=== PATIENT | male | born 1975 | race Hispanic/Latino ===

== ENCOUNTER 2023-05-15 18:54 | Emergency (ER) | payer BC ==
[~2023-05-15] VITALS: Ht 172.7 cm; Wt 101.2 kg
[2023-05-15] MEDS ORDERED: GABA300C PO (19:50)
[2023-05-15] MEDS ORDERED: AMOX1TAB16 PO (19:50)
[2023-05-15 20:10] VITALS: BP 140/72; PULSE 96; RESP 18
== END 2023-05-15 20:11 | disposition home or self-care (01) ==
LOC: EDH 18:54
DX: B02.9 Zoster without complications (principal); E11.9 Type 2 diabetes mellitus without complications; I10 Essential (primary) hypertension

== ENCOUNTER → 2024-05-04 | Emergency (ER) | payer BC ==
[~2024-05-04] VITALS: Ht 172.7 cm; Wt 113.4 kg
[~2024-05-04] MED LIST: AMOX1TAB16 PO; GABA300C PO
[2024-05-04 18:31] VITALS: BP 136/89; PULSE 100; RESP 16
== END ==
LOC: EDH 18:28
DX: B07.9 Viral wart, unspecified (principal); E11.9 Type 2 diabetes mellitus without complications; I10 Essential (primary) hypertension
CPT/HCPCS: 99281

== ENCOUNTER 2024-05-07 12:05 | Emergency (ER) | payer BC ==
[~2024-05-07] VITALS: Ht 172.7 cm; Wt 113.4 kg
[2024-05-07 13:07] LABS: BASOPHILS # (AUTO) 0.04 K/uL (0.00-0.20); BASOPHILS % (AUTO) 0.4 % (0.0-5.0); EOSINOPHILS # (AUTO) 0.13 K/uL (0.00-0.70); EOSINOPHILS % (AUTO) 1.4 % (0.0-8.0); HEMATOCRIT 41.1 % (42-54); IMMATURE GRANULOCYTE ABSOLUTE 0.03 K/uL (0-1); LYMPHOCYTES # (AUTO) 2.7 K/uL (1.0-4.8); LYMPHOCYTES % (AUTO) 29.8 % (21.0-51.0); MEAN CORPUSCULAR HEMOGLOBIN 27.9 pg (27.0-33.0); MEAN CORPUSCULAR HGB CONC 33.6 g/dL (32.0-36.0); MEAN CORPUSCULAR VOLUME 83.2 fL (79-99); MONOCYTES # (AUTO) 0.5 K/uL (0.1-1.0); NEUTROPHILS # (AUTO) 5.6 K/uL (1.8-7.7); NEUTROPHILS % (AUTO) 62.1 % (40.0-77.0); PLATELET COUNT (AUTO) 262 K/uL (130-400); RED BLOOD CELL COUNT(AUTO) 4.94 MIL/uL (4.50-6.20); RED CELL DISTRIBUTION WIDTH 13.7 % (11.0-15.5)
[2024-05-07 13:20] LABS: CREATININE 1.3 mg/dL (0.5-1.3)
[2024-05-07 13:42] VITALS: BP 135/90; PULSE 95; RESP 16; O2SAT 99
== END 2024-05-07 13:45 | disposition home or self-care (01) ==
LOC: EDH 12:05
DX: B07.9 Viral wart, unspecified (principal); E11.65 Type 2 diabetes mellitus with hyperglycemia; I10 Essential (primary) hypertension; Z79.899 Other long term (current) drug therapy
CPT/HCPCS: 36415; 73130; 80048; 85025